=== PATIENT | male | born 1985 | race Caucasian/White ===

== ENCOUNTER → 2017-10-31 | Outpatient (CLI) | payer OTHER ==
[~2017-10-31] MED LIST: B-12 500 MCG; FISH OIL500 MG PO; FLONASE NASAL S16 GM NS; MULTI VITAMINS1 TAB PO; SINGULAIR 110 MG/TAB PO; VYVANSE60 MG PO; ZYRTEC ALLERGY10 MG PO
== END ==
LOC: COL.RAD 14:36
DX: M16.11 Unilateral primary osteoarthritis, right hip (principal)

== ENCOUNTER → 2018-01-17 | Outpatient (CLI) | payer OTHER | LOC: COL.RAD 08:55 | DX: M25.551 Pain in right hip (principal) | CPT/HCPCS: J3301; Q9967 ==

== ENCOUNTER → 2018-09-05 | Outpatient (CLI) | payer OTHER | LOC: COL.RAD 09:55 | DX: M25.851 Other specified joint disorders, right hip (principal) | CPT/HCPCS: A9585; Q9967 ==